=== PATIENT | female | born 1995 | race African-American/Black ===

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

== ENCOUNTER 2017-05-19 14:19 | Emergency (ER) | payer BC, MEDICAID, OTHER ==
[~2017-05-19] VITALS: Ht 162.6 cm; Wt 68.0 kg
[~2017-05-19 14:19] MED LIST: FERR1TAB36 PO
[2017-05-19 14:22] VITALS: BP 127/73; PULSE 105; RESP 13; TEMP 100.8; O2SAT 97
[2017-05-19] MEDS ORDERED: SODIUM CHLOR 0.9% 1000 ML INJ 1,000 ML IV SCH (14:59)
[2017-05-19] MEDS ORDERED: SODIUM CHLORIDE 0.9% FLUSH 10 ML FLUSH IV FLUSH PRN (15:00)
[2017-05-19] MEDS ORDERED: ACETAMINOPHEN 325 MG TAB PO ONE (15:00)
--- NOTE | 2017-05-19 15:08 | PD ---
HPI Chief Complaint: GI Complaint Time Seen by Provider: 14:37 Travel History International Travel<30 days: No Contact w/Intl Traveler<30days: No Traveled to known affect area: No History of Present Illness HPI 21 -year-old female presents to the emergency room for evaluation of nausea, malaise, and decreased appetite for the past 3 days. Patient denies fever or chills, vomiting, diarrhea, abdominal pain, chest pain, shortness breath, cough , congestion, sore throat, dysuria, urgency, frequency, vaginal discharge, or pelvic pain. She is supposed to take iron but has not done so in the past few days. States she has not eaten in the past 3 days because she just has no appetite. PFSH Past Medical History Anemia: Yes Medical other: Yes Tetanus Vaccination: < 5 Years ?: Not LMP: 05/19/17 Past Surgical History Surgical History: No Previous Surgery Social History Alcohol Use: No Tobacco Use: No Substance Use: No Allergies-Medications (Allergen,Severity, Reaction): Coded Allergies: amoxicillin (Verified Allergy, Severe, Rash, 05/19/17) Reported Meds & Prescriptions Reported Meds & Active Scripts Active Reglan (Metoclopramide HCl) 5 Mg Tab 5 Mg PO Q8HR Review of Systems Except as stated in HPI: all other systems reviewed are Neg Physical Exam Narrative GENERAL: Well-nourished, well-developed female in no acute distress. Afebrile. Ambulatory. Smiling, resting comfortable, playing on her phone. SKIN: Focused skin assessment warm/dry. HEAD: Normocephalic. EYES: No scleral icterus. No injection or drainage. NECK: Supple, trachea midline. No JVD or lymphadenopathy. ENT: Mucosa pink and moist. Mild erythema of the pharynx without significant edema or exudates. No uvular edema. No uvular, palatal, or tonsillar deviation. Airway patent. Nasal turbinates appear normal without nasal blood, purulent drainage or septal hematoma. CARDIOVASCULAR: Regular rate and rhythm without murmurs, gallops, or rubs. RESPIRATORY: Breath sounds equal bilaterally. No accessory muscle use. No crackles, rales, wheezes, or rhonchi. GASTROINTESTINAL: Abdomen soft, nondistended. No tenderness to palpation. No peritoneal signs. No guarding. No tenderness. Data Data Last Documented VS Vital Signs Date Time Temp Pulse Resp B/P (MAP) Pulse Ox O2 Delivery O2 Flow Rate FiO2 05/19/17 14:22 100.8 105 13 127/73 (91) 97 Orders Orders Basic Metabolic Panel (Bmp) (05/19/17 14:59) Complete Blood Count With Diff (05/19/17 14:59) Urinalysis - C+S If Indicated (05/19/17 14:59) Iv Access Insert/Monitor (05/19/17 14:59) Sodium Chlor 0.9% 1000 Ml Inj (Ns 1000 M (05/19/17 14:59) Sodium Chloride 0.9% Flush (Ns Flush) (05/19/17 15:00) Influenzae A/B Antigen (05/19/17 14:59) Group A Rapid Strep Screen (05/19/17 14:59) Acetaminophen (Tylenol) (05/19/17 15:00) Strep Culture (Group A) (05/19/17 15:32) Ed Discharge Order (05/19/17 16:27) Labs Laboratory Tests Test 05/19/17 15:32 White Blood Count 5.3 TH/MM3 Red Blood Count 4.08 MIL/MM3 Hemoglobin 11.9 GM/DL Hematocrit 34.1 % Mean Corpuscular Volume 83.4 FL Mean Corpuscular Hemoglobin 29.1 PG Mean Corpuscular Hemoglobin Concent 34.9 % Red Cell Distribution Width 12.6 % Platelet Count 229 TH/MM3 Mean Platelet Volume 7.9 FL Neutrophils (%) (Auto) 83.4 % Lymphocytes (%) (Auto) 6.8 % Monocytes (%) (Auto) 9.5 % Eosinophils (%) (Auto) 0.0 % Basophils (%) (Auto) 0.3 % Neutrophils # (Auto) 4.4 TH/MM3 Lymphocytes # (Auto) 0.4 TH/MM3 Monocytes # (Auto) 0.5 TH/MM3 Eosinophils # (Auto) 0.0 TH/MM3 Basophils # (Auto) 0.0 TH/MM3 CBC Comment DIFF FINAL Differential Comment Urine Color YELLOW Urine Turbidity HAZY Urine pH 5.5 Urine Specific [place] 1.021 Urine Protein TRACE mg/dL Urine Glucose (UA) NEG mg/dL Urine Ketones NEG mg/dL Urine Occult Blood MOD Urine Nitrite NEG Urine Bilirubin NEG Urine Urobilinogen LESS THAN 2.0 MG/DL Urine Leukocyte Esterase NEG Urine RBC 2 /hpf Urine WBC 1 /hpf Urine Squamous Epithelial Cells 5 /hpf Urine Mucus FEW /lpf Microscopic Urinalysis Comment CULT NOT INDICATED Blood Urea Nitrogen 8 MG/DL Creatinine 0.84 MG/DL Random Glucose 76 MG/DL Calcium Level 8.6 MG/DL Sodium Level 135 MEQ/L Potassium Level 3.5 MEQ/L Chloride Level 103 MEQ/L Carbon Dioxide Level 25.9 MEQ/L Anion Gap 6 MEQ/L Estimat Glomerular Filtration Rate 106 ML/MIN [facility] Medical Decision Making Medical Screen Exam Complete: Yes Emergency Medical Condition: Yes Medical Record Reviewed: Yes Differential Diagnosis Gastroenteritis, anemia, influenza, UTI Narrative Course 21-year-old otherwise healthy female presents to the emergency room for evaluation of nausea, malaise, and decreased appetite for the past 3 days. Denies any diarrhea, abdominal pain, cold or flu symptoms, chest pain, or shortness of breath. Patient is slightly febrile in the emergency room at 100.8 . She was given Tylenol and fluids. She is well-appearing, resting comfortably, playing on her phone, smiling. Physical exam is reassuring. Abdomen soft, nontender. CBC and BMP are unremarkable. UA is unremarkable. UPT is negative. Rapid strep and influenza are negative. This is viral gastritis. Patient be discharged with prescription for Reglan which will help with appetite and nausea. Told to follow up with her PCP or return for worsening symptoms. She understands and agrees to plan. Diagnosis Primary Impression: Gastroenteritis Referrals: Primary Care Physician Additional Instructions: Reglan as directed, as needed for nausea. Take Benadryl with his medications to prevent side effects. Follow-up PCP. Return for worsening symptoms. Scripts Metoclopramide (Reglan) 5 Mg Tab 5 MG PO Q8HR, #15 TAB 0 Refills Prov: Ramana Agarwal MD 05/19/17 Disposition: DISCHARGE HOME Condition: Stable Michelle Proctor May 19, 2017 15:08
[2017-05-19 15:46] LABS: AUTOMATED NEUTROPHIL # 4.4 TH/MM3 (1.8-7.7); BASOPHIL % 0.3 % (0.0-2.0); HEMATOCRIT 34.1 % (35.0-46.0); HEMO FLAGS DIFF FINAL; LYMPH % 6.8 % (9.0-44.0); LYMPHOCYTE # 0.4 TH/MM3 (1.0-4.8); MEAN CELL VOLUME 83.4 FL (80.0-100.0); MEAN CORPUSCULAR HEMOGLOBIN 29.1 PG (27.0-34.0); MEAN CORPUSCULAR HGB CONC 34.9 % (32.0-36.0); MONO % 9.5 % (0.0-8.0); NEUT % 83.4 % (16.0-70.0); PLATELET COUNT 229 TH/MM3 (150-450); RED BLOOD COUNT 4.08 MIL/MM3 (4.00-5.30); RED CELL DISTRIBUTION WIDTH 12.6 % (11.6-17.2); WHITE BLOOD COUNT 5.3 TH/MM3 (4.0-11.0)
[2017-05-19 16:00] LABS: BLOOD, URINE MOD (NEG); COMMENT (UR) CULT NOT INDICATED; CULTURE IF INDICATED CULT NOT INDICATED; GLUCOSE,URINE NEG (NEG); KETONE, URINE NEG (NEG); MUCUS URINE FEW /lpf (OCC); NITRITE,URINE NEG (NEG); PH, URINE 5.5 (5.0-8.5); SQUAMOUS EPITHELIAL CELL URINE 5 /hpf (0-5); URINE COLOR YELLOW (YELLW/STRAW)
[2017-05-19 16:05] LABS: BICARBONATE 25.9 MEQ/L (21.0-32.0); POTASSIUM 3.5 MEQ/L (3.5-5.1)
[2017-05-19] MEDS ORDERED: REGL5TAB PO (16:29)
[2017-05-19 16:33] VITALS: BP 101/50; PULSE 100; RESP 16; TEMP 100.2; O2SAT 100
== END 2017-05-19 16:48 | disposition home or self-care (01) ==
LOC: NEPD 14:19
DX: K52.9 Noninfective gastroenteritis and colitis, unspecified (principal)
CPT/HCPCS: 80048; 81001; 85025; 87081; 87804; 87880; 99284; J7030

== ENCOUNTER 2017-05-21 12:04 | Emergency (ER) | payer BC ==
[~2017-05-21] VITALS: Ht 162.6 cm; Wt 68.0 kg
[~2017-05-21 12:04] MED LIST changes: -FERR1TAB36 PO; +REGL5TAB PO
[2017-05-21 12:06] VITALS: BP 139/81; PULSE 108; RESP 17; TEMP 102.4; O2SAT 98
[2017-05-21] MEDS ORDERED: methylPREDNISolone SOD SUCC 125 MG/2 ML VIAL IV PUSH ONE (12:45)
[2017-05-21] MEDS ORDERED: cefTRIAXone INJ 1,000 MG in SODIUM CHLORIDE 0.9% INJ 100 ML IV ONE (12:45)
[2017-05-21] MEDS ORDERED: SODIUM CHLOR 0.9% 1000 ML INJ 1,000 ML IV ONE (12:45)
--- NOTE | 2017-05-21 12:59 | PD ---
HPI Chief Complaint: Fever Time Seen by Provider: 12:21 Travel History International Travel<30 days: No Contact w/Intl Traveler<30days: No Traveled to known affect area: No History of Present Illness HPI The patient was seen and examined in the presence of the nurse. This patient complains of sore throat and fever. She has pain when she swallows. Duration is 3 days. No alleviating factors. No exacerbating factors. She denies health problems, no sickle cell or diabetes. PFSH Past Medical History Anemia: Yes Tetanus Vaccination: < 5 Years ?: Not LMP: CURRENTLY ON PERIOD Past Surgical History Surgical History: No Previous Surgery Social History Alcohol Use: No Tobacco Use: No Substance Use: No Allergies-Medications (Allergen,Severity, Reaction): Coded Allergies: amoxicillin (Verified Allergy, Severe, Rash, 05/21/17) Reported Meds & Prescriptions Reported Meds & Active Scripts Active Magic Mouthwash Adult Liq (Multi-Ingredient Mouthwash/Gargle) 120 Ml Susp 10 Ml SWISH-SWAL ACHS Each 5mL contains: Nystatin 200,000units, Diphenhydramine 4.25mg, Viscous Lidocaine 10mg, Tillman syrup 0.8 mL Prednisone 20 Mg Tab 40 Mg PO DAILY Take 40 mg (2 tablets) daily for 5 days Keflex (Cephalexin) 500 Mg Cap 500 Mg PO Q6H 10 Days Reglan (Metoclopramide HCl) 5 Mg Tab 5 Mg PO Q8HR Review of Systems General / Constitutional: Positive: Fever, Chills Eyes: No: Visual changes HENT: Positive: Sore Throat, No: Headaches Cardiovascular: No: Chest Pain or Discomfort Respiratory: No: Shortness of Breath Gastrointestinal: No: Abdominal Pain Genitourinary: No: Dysuria Musculoskeletal: No: Pain Skin: No Rash Neurologic: No: Weakness Psychiatric: No: Depression Endocrine: No: Polydipsia Hematologic/Lymphatic: No: Easy Bruising Physical Exam Narrative GENERAL: Well-nourished, well-developed patient with throat pain . SKIN: Focused skin assessment reveals no rash and nodules. Skin is Warm and dry. HEAD: Atraumatic. Normocephalic. EYES: Pupils equal and round. No scleral icterus. No injection or drainage. ENT: No nasal bleeding or discharge. Mucous membranes pink and moist. Uvula midline. Both tonsils are enlarged covered with white exudate NECK: Trachea midline. No JVD. No meningeal signs CARDIOVASCULAR: Regular rate and rhythm. No murmur appreciated. RESPIRATORY: No accessory muscle use. Clear to auscultation. Breath sounds equal bilaterally. GASTROINTESTINAL: Abdomen soft, non-tender, nondistended. Hepatic and splenic margins not palpable. MUSCULOSKELETAL: No obvious deformities. No clubbing. No cyanosis. No edema. NEUROLOGICAL: Awake and alert. No obvious cranial nerve deficits. Motor grossly within normal limits. Normal speech. PSYCHIATRIC: Appropriate mood and affect; insight and judgment normal. Data Data Last Documented VS Vital Signs Date Time Temp Pulse Resp B/P (MAP) Pulse Ox O2 Delivery O2 Flow Rate FiO2 05/21/17 12:06 102.4 108 17 139/81 (100) 98 Orders Orders Iv Access Insert/Monitor (05/21/17 12:45) Sodium Chlor 0.9% 1000 Ml Inj (Ns 1000 M (05/21/17 12:45) Ceftriaxone Inj (Rocephin Inj) (05/21/17 12:45) Methylprednisolone So Succ Inj (Solumedr (05/21/17 12:45) Complete Blood Count With Diff (05/21/17 12:45) Basic Metabolic Panel (Bmp) (05/21/17 12:45) Beta Hcg (Quant/Titer) (05/21/17 12:45) Labs Laboratory Tests Test 05/21/17 12:50 White Blood Count 5.4 TH/MM3 Red Blood Count 3.96 MIL/MM3 Hemoglobin 11.2 GM/DL Hematocrit 33.2 % Mean Corpuscular Volume 83.8 FL Mean Corpuscular Hemoglobin 28.4 PG Mean Corpuscular Hemoglobin Concent 33.9 % Red Cell Distribution Width 12.6 % Platelet Count 229 TH/MM3 Mean Platelet Volume 8.3 FL Neutrophils (%) (Auto) 80.6 % Lymphocytes (%) (Auto) 9.6 % Monocytes (%) (Auto) 9.4 % Eosinophils (%) (Auto) 0.1 % Basophils (%) (Auto) 0.3 % Neutrophils # (Auto) 4.4 TH/MM3 Lymphocytes # (Auto) 0.5 TH/MM3 Monocytes # (Auto) 0.5 TH/MM3 Eosinophils # (Auto) 0.0 TH/MM3 Basophils # (Auto) 0.0 TH/MM3 CBC Comment DIFF FINAL Differential Comment Blood Urea Nitrogen 7 MG/DL Creatinine 0.89 MG/DL Random Glucose 85 MG/DL Calcium Level 8.4 MG/DL Sodium Level 135 MEQ/L Potassium Level 3.1 MEQ/L Chloride Level 102 MEQ/L Carbon Dioxide Level 24.3 MEQ/L Anion Gap 9 MEQ/L Estimat Glomerular Filtration Rate 99 ML/MIN Human Chorionic Gonadotropin, Quant LESS THAN 1 MIU/ML MDM Medical Decision Making Medical Screen Exam Complete: Yes Emergency Medical Condition: Yes Medical Record Reviewed: Yes Differential Diagnosis Tonsillitis, pharyngitis, URI Narrative Course I have reviewed the patient's electronic medical record. Patient has a prominent bilateral tonsillitis She is tachycardic and febrile I gave her a liter of saline IV and a dose of Tylenol and 1 g IV Rocephin and 125 monos IV soluMedrol CBC is normal Metabolic profile is normal Beta hCG is negative This patient stable for outpatient follow-up. I've written antibiotics and 5 days of prednisone and Magic mouthwash for symptom relief There is no airway involvement of her infection Diagnosis Primary Impression: Tonsillitis with exudate Additional Impression: Fever and chills Additional Instructions: The patient was advised to follow up with their physician and return if they worsen. The patient was warned about potential sedation for the medications they will receive on prescription. Med/Other Pt SpecificInfo: Prescription(s) given Scripts Jydtukpk-Yqhecibjpklzbvd-Hagspuqae Liq (Magic Mouthwash Adult Liq) 120 Ml Susp 10 ML SWISH-SWAL ACHS for Mouth sores, #120 ML 0 Refills Each 5mL contains: Nystatin 200,000units, Diphenhydramine 4.25mg, Viscous Lidocaine 10mg, Tillman syrup 0.8 mL Prov: Lowell Schmidt MD 05/21/17 Prednisone (Prednisone) 20 Mg Tab 40 MG PO DAILY, #10 TAB 0 Refills Take 40 mg (2 tablets) daily for 5 days Prov: Lowell Schmidt MD 05/21/17 Cephalexin (Keflex) 500 Mg Cap 500 MG PO Q6H for Infection for 10 Days, #40 CAP 0 Refills Prov: Lowell Schmidt MD 05/21/17 Disposition: 01 DISCHARGE HOME Condition: Stable Lowell Schmidt MD May 21, 2017 12:59
[2017-05-21 13:01] LABS: AUTOMATED NEUTROPHIL # 4.4 TH/MM3 (1.8-7.7); BASOPHIL % 0.3 % (0.0-2.0); EOSINOPHIL % 0.1 % (0.0-4.0); HEMATOCRIT 33.2 % (35.0-46.0); HEMO FLAGS DIFF FINAL; LYMPH % 9.6 % (9.0-44.0); LYMPHOCYTE # 0.5 TH/MM3 (1.0-4.8); MEAN CELL VOLUME 83.8 FL (80.0-100.0); MEAN CORPUSCULAR HEMOGLOBIN 28.4 PG (27.0-34.0); MEAN CORPUSCULAR HGB CONC 33.9 % (32.0-36.0); MONO % 9.4 % (0.0-8.0); NEUT % 80.6 % (16.0-70.0); PLATELET COUNT 229 TH/MM3 (150-450); RED BLOOD COUNT 3.96 MIL/MM3 (4.00-5.30); RED CELL DISTRIBUTION WIDTH 12.6 % (11.6-17.2); WHITE BLOOD COUNT 5.4 TH/MM3 (4.0-11.0)
[2017-05-21 13:24] LABS: ANION GAP 9 MEQ/L (5-15); BICARBONATE 24.3 MEQ/L (21.0-32.0); BLOOD UREA NITROGEN 7 MG/DL (7-18); CHLORIDE 102 MEQ/L (98-107); GLOMERULAR FILTRATION RATE 99 ML/MIN (>89); POTASSIUM 3.1 MEQ/L (3.5-5.1); SODIUM (NA) 135 MEQ/L (136-145)
[2017-05-21 13:27] LABS: BETA HCG QUANT LESS THAN 1 MIU/ML (0-5)
[2017-05-21] MEDS ORDERED: MAGICADU2 SWISH-SWAL (14:38)
[2017-05-21] MEDS ORDERED: CEPH-460 PO (14:38)
[2017-05-21] MEDS ORDERED: PRED20 PO (14:38)
[2017-05-21 15:08] VITALS: TEMP 100.5
== END 2017-05-21 15:13 | disposition home or self-care (01) ==
LOC: NEPE 12:04
DX: J03.90 Acute tonsillitis, unspecified (principal)
CPT/HCPCS: 80048; 84702; 85025; 96365; 96375; 99284; J0696; J2930; J7030

== ENCOUNTER 2017-09-03 18:13 | Emergency (ER) | payer BC ==
[~2017-09-03] VITALS: Ht 162.6 cm; Wt 70.0 kg
[~2017-09-03 18:13] MED LIST changes: +CEPH-460 PO; +MAGICADU2 SWISH-SWAL; +PRED20 PO
[2017-09-03 18:16] VITALS: BP 138/65; PULSE 75; RESP 12; TEMP 98.2; O2SAT 98
--- NOTE | 2017-09-03 19:52 | PD ---
HPI Chief Complaint: Credit Reference Clerk Problem/Complaint Time Seen by Provider: 19:36 Travel History International Travel<30 days: No Contact w/Intl Traveler<30days: No Traveled to known affect area: No History of Present Illness HPI The patient is a 21 year old female who presents to the [facility] emergency department with a history of vaginal itching and irritation that is now most prominent when she urinates or showers but first began over 2 weeks ago. She reports that she was seen [facility] 2 weeks ago and was diagnosed with urinary tract infection. She did complete a course of antibiotic, however the other vaginal symptoms have continued. She is unsure when her last menstrual cycle was, however she does have an IUD in place. She reports that her dysuria has improved since completing the course of antibiotic. She denies having any urinary frequency or urgency. She denies having any vaginal discharge. She did try taking Monistat without any improvement. She denies having a pelvic examination at the [facility]. She denies any new sexual partners. She reports that she has not had intercourse since June. She denies having any fevers or chills. She reports having vaginal spotting with her IUD, no other significant vaginal discharge or odor. A review of systems otherwise, the patient denies having any recent cough or congestion, neck pain, chest pain, shortness of breath, abdominal pain, vomiting , diarrhea, or neurologic symptoms. [facility] Past Medical History Narrative Medical The patient's past medical history is significant for anemia, irregular vaginal bleeding status post IUD. Medical History: Denies Significant Hx Anemia: Yes Influenza Vaccination: No ?: Not LMP: IRREGULAR : 0 Past Surgical History Surgical History: No Previous Surgery Social History Alcohol Use: No Tobacco Use: No Substance Use: No Allergies-Medications (Allergen,Severity, Reaction): Coded Allergies: amoxicillin (Verified Allergy, Severe, Rash, 09/03/17) Reported Meds & Prescriptions Reported Meds & Active Scripts Active Diflucan (Fluconazole) 150 Mg Tab 150 Mg PO ONCE Review of Systems Except as stated in HPI: all other systems reviewed are Neg General / Constitutional: No: Fever Eyes: No: Visual changes HENT: No: Headaches Cardiovascular: No: Chest Pain or Discomfort Respiratory: No: Shortness of Breath Gastrointestinal: No: Abdominal Pain Genitourinary: Positive: Discharge, Vaginal Bleeding, Other (Vaginal itching and irritation), No: Urgency, Frequency, Dysuria Musculoskeletal: No: Pain Skin: No Rash Neurologic: No: Weakness, Focal Abnormalities, Change in Mentation, Slurred Speech, Sensory Disturbance Psychiatric: No: Depression Endocrine: No: Polydipsia Hematologic/Lymphatic: No: Easy Bruising Physical Exam Narrative General: The patient is a well-developed well-nourished female in no acute distress. Head and Neck exam: Head is normocephalic atraumatic. Neck: No palpable lymphadenopathy. No nuchal rigidity. Cardiovascular: Regular rate and rhythm without murmurs, gallops, or rubs. Lungs: Clear to auscultation bilaterally. No wheezes, rhonchi, or rales. Abdomen: Soft, without tenderness to palpation in all 4 quadrants of the abdomen. No guarding, rebound, or rigidity. Extremities: No clubbing, cyanosis, or edema. Neurologic Exam: Grossly nonfocal. Skin Exam: No rash noted. Intact skin that is warm and dry. Gynecologic exam: The patient was placed in the dorsal lithotomy position. Her external genitalia were examined. She had no evidence of rash or lesions. The speculum was placed into her vagina and the cervix was identified. She had a physiologic appearing clear white discharge. The patient has IUD strings noted in the vagina. No cervical friability. On Bimanual exam: she has no cervical motion tenderness. No adnexal tenderness or prominence noted on palpation. No uterine tenderness or enlargement noted on palpation. Data Data Last Documented VS Vital Signs Date Time Temp Pulse Resp B/P (MAP) Pulse Ox O2 Delivery O2 Flow Rate FiO2 09/03/17 20:27 09/03/17 18:16 98.2 75 12 98 Orders Orders Gc And Chlamydia Pcr (09/03/17 19:37) Wet Prep Profile (09/03/17 19:37) Urinalysis - C+S If Indicated (09/03/17 19:37) Ed Urine Pregnancytest Poc (09/03/17 19:37) Ed Discharge Order (09/03/17 20:21) Labs Laboratory Tests Test 09/03/17 19:48 2 19:54 Clue Cells (Wet Prep) NONE SEEN Vaginal Trichomonas (Wet Prep) NONE SEEN Vaginal Yeast (Wet Prep) NONE SEEN Chlamydia trachomatis DNA (PCR) NOT DETECTED Neisseria gonorrhoeae DNA (PCR) NOT DETECTED Urine Color LIGHT-YELLOW Urine Turbidity CLEAR Urine pH 5.5 Urine Specific [place] 1.010 Urine Protein NEG mg/dL Urine Glucose (UA) NEG mg/dL Urine Ketones NEG mg/dL Urine Occult Blood NEG Urine Nitrite NEG Urine Bilirubin NEG Urine Urobilinogen LESS THAN 2.0 MG/DL Urine Leukocyte Esterase LARGE Urine RBC 1 /hpf Urine WBC 3 /hpf Urine Squamous Epithelial Cells 1 /hpf Urine Mucus FEW /lpf Microscopic Urinalysis Comment CULT NOT INDICATED MDM Medical Decision Making Medical Screen Exam Complete: Yes Emergency Medical Condition: Yes Medical Record Reviewed: Yes Differential Diagnosis Urinary tract infection, versus yeast vaginitis, versus bacterial vaginosis, versus gonorrhea, versus chlamydia, versus trichomoniasis Narrative Course During the course of the patient's emergency department visit, the patient's history, examination, and differential diagnosis were reviewed with the patient. The patient was placed on a compliance specialist with oximetry and frequent blood pressure monitoring. The patient had a urine, kdsuk-lh-eons test , GC chlamydia, wet prep ordered. The patient's laboratory studies were reviewed and remarkable for a urine that shows a large leukocyte Estrace 1 RBC 3 WBCs few mucus, culture not indicate, wet prep is negative. test is negative. Given the patient's symptoms of vaginal itching and irritation, the patient will be empirically treated with Diflucan. She is instructed to follow-up with a chemical pumper or the health department for reexamination in a week if she continues to have symptoms. She is instructed regarding the importance of using condoms for prevention of transmission of sexually transmitted infections. The patient is resting comfortably and feels better, is alert and in no distress. The patient's results and examination findings were discussed with the patient. The repeat examination is unremarkable and benign. The history, exam, diagnostic testing, and current condition do not suggest any significant pathology to warrant further testing, continued ED treatment, admission, or surgical evaluation at this point. The vital signs have been stable. The patient does not have uncontrollable pain, intractable vomiting, or other significant symptoms. The patient's condition is stable and appropriate for discharge. The patient will pursue further outpatient evaluation with a primary care physician or other designated or consulting physician as indicated in the discharge instructions. The patient expressed understanding and was agreeable with this plan. Diagnosis Primary Impression: Vaginitis Qualified Codes: N76.1 - Subacute and chronic vaginitis Referrals: Alarm Installer 1 week [facility] Patient Instructions: General Instructions, Vaginitis (ED) Med/Other Pt SpecificInfo: Prescription(s) given Scripts Fluconazole (Diflucan) 150 Mg Tab 150 MG PO ONCE for Infection, #1 TAB 0 Refills Prov: Mar Mathews MD 09/03/17 Disposition: 01 DISCHARGE HOME Condition: Stable Mar Mathews MD Sep 03, 2017 19:52
[2017-09-03 20:06] LABS: BILIRUBIN, URINE NEG (NEG); BLOOD, URINE NEG (NEG); GLUCOSE,URINE NEG (NEG); KETONE, URINE NEG (NEG); MUCUS URINE FEW /lpf (OCC); NITRITE,URINE NEG (NEG); PH, URINE 5.5 (5.0-8.5); SQUAMOUS EPITHELIAL CELL URINE 1 /hpf (0-5); URINE COLOR LIGHT-YELLOW (YELLW/STRAW); URINE LEUKOCYTE ESTERASE LARGE (NEG)
[2017-09-03] MEDS ORDERED: DIFL150T PO (20:19)
== END 2017-09-03 20:39 | disposition home or self-care (01) ==
LOC: NEPE 18:13
DX: N76.1 Subacute and chronic vaginitis (principal)
CPT/HCPCS: 81001; 84703; 87210; 87491; 87591; 99283